=== PATIENT | female | born 1945 | race Caucasian/White ===

== ENCOUNTER 2020-12-01 06:26 | Inpatient (IN) ==
--- NOTE | 2020-11-26 10:23 | PAT Medication Instructions ---
Medication Instructions Date of Service November 26, 2020 Home Medications Medication Instructions Recorded nitroglycerin 0.4 mg sublingual 0.4 mg SL Q5M PRN #25 tab 08/12/19 tablet albuterol sulfate 90 mcg/actuation 2 puff INHALATION Q4H PRN #18 gm 08/23/20 aerosol inhaler hydrocortisone 2.5 % topical cream 1 applic SD BID PRN #30 g 08/24/20 with perineal applicator (Anusol-HC) lorazepam 0.5 mg tablet 0.5 mg PO Q6H PRN #120 tab 10/28/20 budesonide-formoterol HFA 160 2 puff INH BID #6 g 11/02/20 mcg-4.5 mcg/actuation aerosol inhaler (Symbicort) dicyclomine 10 mg capsule 10 mg PO BID #60 cap 11/02/20 buspirone 5 mg tablet 5 mg PO BID #60 tab 11/04/20 bacitracin 500 unit/gram eye 0.5 inch OPHTHALMIC (EYE) Q8H 7 11/16/20 ointment Days #3.5 g hydrocortisone acetate 1 % rectal cream 1 % SD BID nitroglycerin 0.4 mg sublingual tablet 0.4 mg SL Q5M PRN albuterol sulfate 90 mcg/actuation aerosol inhaler 2 puff INHALATION Q4H PRN hydrocortisone 2.5 % topical cream with perineal applicator (Anusol-HC) 1 applic SD BID PRN lorazepam 0.5 mg tablet 0.5 mg PO Q6H PRN budesonide-formoterol HFA 160 mcg-4.5 mcg/actuation aerosol inhaler (Symbicort) 2 puff INH BID dicyclomine 10 mg capsule 10 mg PO BID buspirone 5 mg tablet 5 mg PO BID bacitracin 500 unit/gram eye ointment 0.5 inch OPHTHALMIC (EYE) Q8H 7 Days amlodipine 5 mg tablet 5 mg PO QAM aspirin 325 mg tablet 325 mg PO QAM atorvastatin 10 mg tablet 10 mg PO QPM hydrocortisone acetate 25 mg rectal suppository (Anusol-HC) 25 mg SD BID PRN lidocaine HCl 2 % mucosal jelly 1 applic TOPICAL BID PRN metoprolol succinate 50 mg tablet,extended release 24 hr 50 mg PO QPM montelukast 10 mg tablet 10 mg PO QPM olmesartan 40 mg tablet (Benicar) 40 mg PO QAM omeprazole 20 mg capsule,delayed release 20 mg PO QAM phenazopyridine 100 mg tablet 100 mg PO TID PRN Continue as directed nitroglycerin 0.4 mg sublingual tablet 0.4 mg SL Q5M PRN (if needed) bacitracin 500 unit/gram eye ointment 0.5 inch OPHTHALMIC (EYE) Q8H 7 Days ASK your prescriber and surgeon aspirin 325 mg tablet 325 mg PO QAM STOP taking 24 hours before surgery hydrocortisone acetate 1 % rectal cream 1 % SD BID hydrocortisone 2.5 % topical cream with perineal applicator (Anusol-HC) 1 applic SD BID PRN lidocaine HCl 2 % mucosal jelly 1 applic TOPICAL BID PRN DO NOT take the morning of surgery dicyclomine 10 mg capsule 10 mg PO BID olmesartan 40 mg tablet (Benicar) 40 mg PO QAM phenazopyridine 100 mg tablet 100 mg PO TID PRN Take morning of surgery With a small sip of water, OTHERWISE NOTHING TO EAT OR DRINK AFTER MIDNIGHT: albuterol sulfate 90 mcg/actuation aerosol inhaler 2 puff INHALATION Q4H PRN (use if needed; please bring with you to hospital day of surgery if possible) lorazepam 0.5 mg tablet 0.5 mg PO Q6H PRN (if needed) budesonide-formoterol HFA 160 mcg-4.5 mcg/actuation aerosol inhaler (Symbicort) 2 puff INH BID buspirone 5 mg tablet 5 mg PO BID amlodipine 5 mg tablet 5 mg PO QAM hydrocortisone acetate 25 mg rectal suppository (Anusol-HC) 25 mg SD BID PRN (if needed) omeprazole 20 mg capsule,delayed release 20 mg PO QAM Take evening before surgery albuterol sulfate 90 mcg/actuation aerosol inhaler 2 puff INHALATION Q4H PRN (if needed) lorazepam 0.5 mg tablet 0.5 mg PO Q6H PRN (if needed) budesonide-formoterol HFA 160 mcg-4.5 mcg/actuation aerosol inhaler (Symbicort) 2 puff INH BID dicyclomine 10 mg capsule 10 mg PO BID buspirone 5 mg tablet 5 mg PO BID atorvastatin 10 mg tablet 10 mg PO QPM hydrocortisone acetate 25 mg rectal suppository (Anusol-HC) 25 mg SD BID PRN (if needed) metoprolol succinate 50 mg tablet,extended release 24 hr 50 mg PO QPM montelukast 10 mg tablet 10 mg PO QPM phenazopyridine 100 mg tablet 100 mg PO TID PRN (if needed) Other Notes If you have any questions please call us at [phone] or [phone] or [phone] or [phone]
--- NOTE | 2020-11-29 10:23 | Anesthesiology Consultation ---
Date of Service November 29, 2020 Assessment & Plan (1) Encounter for pre-operative examination: - hyponatremia at 128 11/29/2020-131 and 130 in recent months. Case discussed with Dr. Webber who advised repeat BMP am DOS. This was ordered on OR order sheet. FYI note also sent to PCP. - Cardio pre-op evaluation 09/30/2020: "...history of RCA stents x 2 in 2004...She has been experiencing some decline in her functional capacity...She has COPD which is managed by her PCP...I will have her go for a dobutamine stress test...I will have her repeat her labs. If her potassium remains elevated she will need to reduce her ARB dose...She can reduce her ASA to 81 mg...She is above average risk for cardiac complication including heart failure, arrhythmia, AR and cardiac arrest perioperatively with a NSQIP calculator score of 2.2% which I discussed with the patient. We also discussed that despite her elevated risk, surgery is necessary given her risk for rupture. Pt underwent subsequent dobutamine stress test negative for ischemia, repeat labs showed K within normal range. - COVID screening: Per assessment on 11/29/2020: Travel screen negative, no known COVID-19 positive contacts or current COVID-19 related symptoms. Patient vaccinated. Surgeon arranging preop COVID testing, being completed today at PAT appointment. Awaiting results. Chart Review Chart Review: Acceptable Risk for Surgery (repeat BMP am DOS.) and Patient seen in Pre Admission Testing Teaching & Discussion Pre-Anesthesia Teaching/Discussion Notes: Instructed NPO after midnight before surgery, except medications with 15 cc of water. Medication instructions provided according to the PAT guidelines. History Surgery Operation Date: 12/01/20 08:00 Proposed Procedures p Percutaneous Endovascular Aneurysm Repair - Angelo Panda MD Height/Weight Height: 4 ft 11 in Weight: 59.1 kg Allergies Allergy/AdvReac Type Severity Reaction Status Date / Time azithromycin Allergy Hives Verified 11/24/20 14:18 hydrochlorothiazide AdvReac Unknown Verified 11/24/20 14:18 Medications Home Medications Medication Instructions Recorded Confirmed Last Taken hydrocortisone acetate 1 % rectal 1 % NM BID #1 08/23/18 11/24/20 Unknown cream nitroglycerin 0.4 mg sublingual 0.4 mg SL Q5M PRN #25 tab 08/12/19 11/24/20 Unknown tablet hydrocortisone 2.5 % topical cream 1 applic [place] BID PRN #30 g 08/24/20 11/24/20 Unknown with perineal applicator (Anusol-) lorazepam 0.5 mg tablet 0.5 mg PO Q6H PRN #120 tab 10/28/20 11/24/20 Unknown budesonide-formoterol HFA 160 2 puff INH BID #6 g 11/02/20 11/24/20 Unknown mcg-4.5 mcg/actuation aerosol inhaler (Symbicort) dicyclomine 10 mg capsule 10 mg PO BID #60 cap 11/02/20 11/24/20 Unknown buspirone 5 mg tablet 5 mg PO BID #60 tab 11/04/20 11/24/20 Unknown bacitracin 500 unit/gram eye 0.5 inch OPHTHALMIC (EYE) Q8H 7 11/16/20 11/24/20 Unknown ointment Days #3.5 g amlodipine 5 mg tablet 5 mg PO QAM 11/24/20 11/24/20 Unknown aspirin 325 mg tablet 325 mg PO QAM 11/24/20 11/24/20 Unknown atorvastatin 10 mg tablet 10 mg PO QPM 11/24/20 11/24/20 Unknown hydrocortisone acetate 25 mg 25 mg [place] BID PRN 11/24/20 11/24/20 Unknown rectal suppository (Anusol-HC) lidocaine HCl 2 % mucosal jelly 1 applic TOPICAL BID PRN 11/24/20 11/24/20 Unknown metoprolol succinate 50 mg 50 mg PO QPM 11/24/20 11/24/20 Unknown tablet,extended release 24 hr montelukast 10 mg tablet 10 mg PO QPM 11/24/20 11/24/20 Unknown olmesartan 40 mg tablet (Benicar) 40 mg PO QAM 11/24/20 11/24/20 Unknown omeprazole 20 mg capsule,delayed 20 mg PO QAM 11/24/20 11/24/20 Unknown release phenazopyridine 100 mg tablet 100 mg PO TID PRN 11/24/20 11/24/20 Unknown albuterol sulfate 90 mcg/actuation 2 puff INHALATION Q4H PRN #18 gm 11/29/20 Unknown aerosol inhaler Past Medical History Medical History (Updated 11/29/20 @ 10:58 by Desiree Gayle PA-C) AAA (abdominal aortic aneurysm) 5.3 x 5.4cm AAA Anxiety CAD (coronary artery disease) S/p RCA stents x 2 in 2004 Last seen by cardio September 2020 (for preop for PEVAR)- DSE done 11/2020 (negative) COPD (chronic obstructive pulmonary disease) Chronic dyspnea on exertion, stable per pt, recent negative dobutamine stress test ordered by cardio, follows with PCP. Dyslipidemia GERD (gastroesophageal reflux disease) Controlled, denies issues laying flat HTN (hypertension) Controlled, stable. Menopausal osteoporosis Patient denies h/o stroke, seizures, DM, blood clots or blood transfusions. Exercise / Class Metabolic Activity III < 4 Walking/Shop/Light housework (SOB with 1 FOS, denies CP) Past Family History Family History Father Myocardial infarction Pulmonary embolism Sister Lung cancer Cancer Brain tumor Mother Myocardial infarction Other No family history of adverse response to anesthesia Denies family history of Ovarian cancer Prostate cancer Breast cancer Colorectal cancer Past Surgical History Surgical History H/O colonoscopy H/O tubal ligation History of appendectomy History of cardiac catheterization approx 10 years ago - + stress test - [facility] - 1 stent History of esophagogastroduodenoscopy (EGD) History of heart artery stent x 1 History of tonsillectomy and adenoidectomy Past Anesthesia History No Hx of Anesthesia Complications and No Family Hx of Anesthesia Complications History of PONV No Hx of PONV and No Hx of Motion Sickness Social History Smoking Status: Former smoker tobacco type: cigarettes Do You Dip or Chew Tobacco: No Smoking End Date: 12 years ago Hx Alcohol Use: No Hx Substance Use: No substance use type: does not use Review of Systems Patient denies chest pain, shortness of breath at rest, snoring, witnessed apneas, fever, chills, wheezing, or palpitations. Physical Exam Vital Signs Vitals BP 149/75 P 80 TEMP 98.4 SP02 96% on RA RESP 16 Physical Full cervical extension range of motion without pain TMD 3.5 finger breaths Mallampati Score 3 Dentition: edentulous, full upper and lower dentures Lungs: normal respiratory effort. Clear throughout to auscultation, no adventitious breath sounds Cardiac: regular rate and rhythm, no murmurs noted Carotid arteries: negative bruit bilat Extremities: no distal extremity edema Lab Results Anesthesia Preop Results Results Anesthesia Widget: WBC 8.04 K/uL (4.8-10.8) 11/29/20 Hgb 14.5 g/dL (12.0-16.0) 11/29/20 Hct 42.2 % (37-47) 11/29/20 Plt 283 K/uL (130-400) 11/29/20 Na 128 mmol/L (136-145) L 11/29/20 K 4.8 mmol/L (3.5-5.1) 11/29/20 Cl 96 mmol/L (98-107) L 11/29/20 CO2 31 mmol/L (21-32) 11/29/20 BUN 15 mg/dl (7-18) 11/29/20 Creat 0.94 mg/dl (0.6-1.2) 11/29/20 Glucose Level 107 mg/dl (70-99) H 11/29/20 PT 9.8 Seconds (9.0-12.0) 11/29/20 PTT 25.5 Seconds (21.0-31.0) 11/29/20 INR 1.0 (0.9-1.1) 11/29/20 Blood Type O Negative 11/29/20 Antibody Screen NEGATIVE 11/29/20 Lab Comments: COVID 11/29/2020: Negative. Testing Electrocardiogram Date: 11/29/20 Normal sinus rhythm. Normal ECG. No previous ECGs available. Confirmed by Feng Anderson. Chest X-Ray Date: 11/29/20 No acute chest disease. Stress Test Date: 11/23/20 Dobutamine MPHR 92%. Negative stress echocardiogram for ischemia at 92% MPHR. Negative stress ECG for ischemia at 92% MPHR. EF 75%. No regional wall motion abnormalities.
--- NOTE | 2020-11-30 14:08 | History & Physical Report ---
Date of Service November 30, 2020 Assessment & Plan (1) AAA (abdominal aortic aneurysm) without rupture: Plan: Patient admitted for a PEVAR of her AAA. I have discussed the risks options and benefits of the procedure with the patient. The patient understands the risks options and benefits and agrees to the procedure. History of Present Illness Chief Complaint: AAA Primary Care Provider: Mitchell Youngblood DO Mrs. Pal is an elderly female who presents to vascular surgery clinic today for a follow-up visit after undergoing a CTA of the abdomen and pelvis. Patient is seen by our vascular service annually with an aortoiliac ultrasound to evaluate her infrarenal AAA. She was to be seen here again this fall, however, her family physician ordered a renal ultrasound which demonstrated a 5.4 cm infrarenal abdominal aortic aneurysm. Her last ultrasound performed in this office in fall 2019 had demonstrated her aneurysm to be about 4.8 cm. Patient was advised to undergo a CTA and return to our office for further recommendations due to the size demonstrated on the renal ultrasound. Patient does admit dyspnea on exertion when she goes upstairs or is active. She attributes this to her COPD. She does have a history of coronary stenting many years ago and does not continue to follow with her biblical studies professor for many years. Her last stress test was performed an unknown number of years ago. Patient denies any complaints at this time clinic headache, fever, chills, chest pain, shortness of breath, abdominal pain, nausea, vomiting, claudication, nonhealing wounds or ulcers, other complaints. Allergies Allergy/AdvReac Type Severity Reaction Status Date / Time azithromycin Allergy Hives Verified 11/24/20 14:18 hydrochlorothiazide AdvReac Unknown Verified 11/24/20 14:18 Home Medications Medication Instructions Recorded Confirmed Type hydrocortisone acetate 1 % rectal 1 % [place] BID #1 08/23/18 11/24/20 History cream nitroglycerin 0.4 mg sublingual 0.4 mg SL Q5M PRN #25 tab 08/12/19 11/24/20 Rx tablet hydrocortisone 2.5 % topical cream 1 applic [place] BID PRN #30 g 08/24/20 11/24/20 Rx with perineal applicator (Anusol-HC) lorazepam 0.5 mg tablet 0.5 mg PO Q6H PRN #120 tab 10/28/20 11/24/20 Rx budesonide-formoterol HFA 160 2 puff INH BID #6 g 11/02/20 11/24/20 Rx mcg-4.5 mcg/actuation aerosol inhaler (Symbicort) dicyclomine 10 mg capsule 10 mg PO BID #60 cap 11/02/20 11/24/20 Rx buspirone 5 mg tablet 5 mg PO BID #60 tab 11/04/20 11/24/20 Rx bacitracin 500 unit/gram eye 0.5 inch OPHTHALMIC (EYE) Q8H 7 11/16/20 11/24/20 R x ointment Days #3.5 g amlodipine 5 mg tablet 5 mg PO QAM 11/24/20 11/24/20 History aspirin 325 mg tablet 325 mg PO QAM 11/24/20 11/24/20 History atorvastatin 10 mg tablet 10 mg PO QPM 11/24/20 11/24/20 History hydrocortisone acetate 25 mg 25 mg [place] BID PRN 11/24/20 11/24/20 History rectal suppository (Anusol-HC) lidocaine HCl 2 % mucosal jelly 1 applic TOPICAL BID PRN 11/24/20 11/24/20 History metoprolol succinate 50 mg 50 mg PO QPM 11/24/20 11/24/20 History tablet,extended release 24 hr montelukast 10 mg tablet 10 mg PO QPM 11/24/20 11/24/20 History olmesartan 40 mg tablet (Benicar) 40 mg PO QAM 11/24/20 11/24/20 History omeprazole 20 mg capsule,delayed 20 mg PO QAM 11/24/20 11/24/20 History release phenazopyridine 100 mg tablet 100 mg PO TID PRN 11/24/20 11/24/20 History albuterol sulfate 90 mcg/actuation 2 puff INHALATION Q4H PRN #18 gm 11/29/20 Rx aerosol inhaler Past Med/Surg History Medical History AAA (abdominal aortic aneurysm) 5.3 x 5.4cm AAA Anxiety CAD (coronary artery disease) S/p RCA stents x 2 in 2004 Last seen by cardio September 2020 (for preop for PEVAR)- DSE done 11/2020 (negative) COPD (chronic obstructive pulmonary disease) Chronic dyspnea on exertion, stable per pt, recent negative dobutamine stress test ordered by cardio, follows with PCP. Dyslipidemia GERD (gastroesophageal reflux disease) Controlled, denies issues laying flat HTN (hypertension) Controlled, stable. Menopausal osteoporosis Surgical History H/O colonoscopy H/O tubal ligation History of appendectomy History of cardiac catheterization approx 10 years ago - + stress test - [facility] - 1 stent History of esophagogastroduodenoscopy (EGD) History of heart artery stent x 1 History of tonsillectomy and adenoidectomy Family History Father Myocardial infarction Pulmonary embolism Sister Lung cancer Cancer Brain tumor Mother Myocardial infarction Other No family history of adverse response to anesthesia Denies family history of Ovarian cancer Prostate cancer Breast cancer Colorectal cancer Social History Smoking Status: Former smoker Age Started Using Tobacco: 15; Age Quit Using Tobacco: 49; packs per day: 1.5; Years Smoked: 34; Number of Years Since Quit: 15; Second Hand Exposure: No; Hx Alcohol Use: No Hx Substance Use: No Preferred Language: Persian Communication Ability: Effective Visual Impairment: Limited Hearing Ability: Hard of Hearing Mill Tender Washing Required: No Beliefs That Will Affect Care: None marital status: Current Living Situation: Spouse current occupational status: retired current occupation: retired- nursing service director Feels Safe at Home: Yes Childhood Exposure to Second-Hand Smoke: Yes Physical Activity Frequency: 3-4 Times per Week Seatbelt Use: always Sunscreen Use: Yes Assistive Devices: Denture - Upper, Denture - Lower and Glasses Review of Systems All systems reviewed & are unremarkable except as noted in HPI & below Physical Exam Physical Exam: Constitutional: In general patient is a healthy-appearing well- nourished well-developed elderly female no distress. She is alert and oriented without any focal deficits. Her heart is regular, her lungs are clear but demonstrate significantly decreased breath sounds. Her abdomen is soft and nontender with normoactive bowel sounds in all 4 quadrants. Her pulsatile mass is appreciable on deep palpation. Her radial pulses are +3. Her femoral pulses are +2. Her lower extremity distal pulses are +2. She has brisk capillary refill and no sign of distal ischemia
[~2020-12-01 06:26] MED LIST: SODIUM CHLORIDE 0.9% 1000ML IV SCH; ceFAZolin 1000MG 1,000 MG/7.5 ML SYR IV SCH
[2020-12-01] MEDS ORDERED: BUPIVACAINE 0.5 % 5 MG/1 ML MPF 30ML VIAL ONE (07:13)
[2020-12-01] MEDS ORDERED: NEOSTIGMINE METHYLSULFATE 1 MG/ML 10ML VIAL ONE (07:14)
[2020-12-01] MEDS ORDERED: PHENYLEPHRINE HCL 10 MG/ML VIAL ONE (07:14)
[2020-12-01] MEDS ORDERED: fentaNYL citrate 100 MCG/2 ML VIAL ONE (07:14)
[2020-12-01] MEDS ORDERED: DEXAMETHASONE SOD INJ 4 MG/ML VIAL ONE (07:14)
[2020-12-01] MEDS ORDERED: HEPARIN SOD (PORCINE) 1000 UNIT/ML ONE (07:14)
[2020-12-01] MEDS ORDERED: MIDAZOLAM HCL 1 MG/ML 2ML VIAL ONE (07:14)
[2020-12-01] MEDS ORDERED: PROPOFOL IV EMULSION 10 MG/ML 20 ML VIAL IV ONE (07:14)
[2020-12-01] MEDS ORDERED: PROTAMINE SULFATE 10 MG/ML 5 ML VIAL ONE (07:14)
[2020-12-01] MEDS ORDERED: ROCURONIUM BROMIDE 10 MG/ML 5 ML VIAL IV ONE ×2 (07:14→07:33)
[2020-12-01] MEDS ORDERED: LABETALOL HCL IV 5 MG/ML 20ML IV ONE (07:14)
[2020-12-01] MEDS ORDERED: LARYING-O-JET KIT (LTA) ONE (07:14)
[2020-12-01] MEDS ORDERED: ePHEDrine sulfate 50 MG/ML SYR ONE (07:14)
[2020-12-01] MEDS ORDERED: GLYCOPYRROLATE 0.2 MG/ML VIAL ONE (07:14)
[2020-12-01] MEDS ORDERED: LIDOCAINE 2% 2 ML VIAL/AMP(20MG/ML) INFIL ONE (07:14)
[2020-12-01] MEDS ORDERED: ONDANSETRON INJ 2 MG/ML 2 ML VIAL ONE (07:14)
[2020-12-01] MEDS ORDERED: PHENYLEPHRINE 100MCG/ML 5ML SYR IV PRN (07:15)
[2020-12-01] MEDS ORDERED: ATROPINE SULFATE 0.1 MG/ML 10ML SYR IV PRN (07:15)
[2020-12-01] MEDS ORDERED: ePHEDrine sulfate 50 MG/ML AMP IV PRN (07:15)
[2020-12-01] MEDS ORDERED: ONDANSETRON INJ 2 MG/ML 2 ML VIAL IV PRN ×2 (07:15→11:43)
[2020-12-01] MEDS ORDERED: HYDROmorphone INJ 1 MG/ML SYRINGE IV PRN (07:15)
[2020-12-01] MEDS ORDERED: fentaNYL citrate 100 MCG/2 ML VIAL IV PRN (07:15)
[2020-12-01] MEDS ORDERED: MEPERIDINE HCL 25 MG/ML CARP/VIAL IV PRN (07:15)
[2020-12-01] MEDS ORDERED: LABETALOL HCL IV 5 MG/ML 20ML IV PRN (07:15)
[2020-12-01] MEDS ORDERED: EPINEPHrine INJ 1 MG/ML AMP ONE (07:16)
--- NOTE | 2020-12-01 07:38 | History & Physical Bridge Note ---
Date of Service December 01, 2020 History & Physical Bridge Note I have examined the patient, reviewed the History & Physical and in the interval since the performance of the History & Physical I have noted the following changes of clinical significance: no changes noted
[2020-12-01 07:56] LABS: BUN Creatinine Ratio 16.7 (10-20); Calcium 9.1 mg/dl (8.5-10.1); Creatinine Clr Calc Pharmacy 42.3 ml/min; Est GFR (Non-African American) 63.8 ml/min; Potassium 3.8 mmol/L (3.5-5.1)
[2020-12-01] MEDS ORDERED: VISIPAQUE IV PRN (09:37)
[2020-12-01] MEDS ORDERED: ARISTA ABSORBABLE HEMOSTAT 3GM TOP ONE (09:37)
[2020-12-01] MEDS ORDERED: SURGICEL ABSORB HEMOSTAT 2IN X 14IN TOP ONE (09:44)
[2020-12-01] MEDS ORDERED: SUGAMMADEX SODIUM 200 MG/2 ML VIAL IV ONE (09:53)
--- NOTE | 2020-12-01 09:58 | Post Operative Brief Note ---
Immediate Post Op Note v1 Date of Surgery December 01, 2020 Pre & Post Diagnosis Operation Date: 12/01/20 08:00 Pre-Op Diagnosis: Abdominal Aortic Aneurysm Post-Op Diagnosis: Abdominal Aortic Aneurysm I identified the patient and participated in the time-out.: Yes Procedure Operation Date: 12/01/20 08:00 Actual Procedures p Percutaneous Endovascular Aneurysm Repair, Open Exposure of Left Groin, Ultrasound Localization of Bilateral Femoral Arteries, Mechanical Closure of Right Femoral Artery(Bilateral) - Angelo Panda MD Surgeon Angelo Panda MD Federal Judge Yina,PAC Estimated Blood Loss 50 Findings Consistent with Post-Op Diagnosis Drains Koenig Catheter Anesthesia Type General Complications none Disposition Accompanied Patient To Recovery: No Disposition: Recovery Room
[2020-12-01 10:43] LABS: Hematocrit (blood only) 33.6 % (37-47); Hemoglobin 11.2 g/dL (12.0-16.0)
--- NOTE | 2020-12-01 11:16 | Anesthesiology Progress Note ---
Date of Service December 01, 2020 Anesthesia Post Procedure Vital Signs Vital Signs: Temp Pulse Pulse Resp BP Pulse Ox 12/01/20 10:45 36.3 C L 103 H 19 80/47 L 93 12/01/20 10:35 97 H 24 100/52 L 92 12/01/20 10:25 97 H 25 H 98/51 L 93 12/01/20 10:15 91 H 23 95/51 L 95 12/01/20 10:05 36.1 C L 105 H 16 107/57 L 100 12/01/20 07:05 36.5 C 94 H 18 139/85 94 Pain Intensity Abdomen: Pain Intensity: 0 Transfer of Care Handoff Completed per policy Notes Mental Status: alert / awake / arousable Patient Amnestic to Procedure: Yes Nausea / Vomiting: adequately controlled Pain: adequately controlled Airway Patency, RR, SpO2: stable & adequate BP & HR: stable & adequate Hydration State: stable & adequate Anesthetic Complications: no major complications apparent and Pt Satisfied with anesthetic care Notes: The patient is awake and comfortable. She has an arterial line and her last SBP was in the 100s (not 80). Sign out was given to Dr. Leo in the ICU. The patient will be monitored overnight in the ICU.
[2020-12-01] MEDS ORDERED: LORazepam 0.5 MG TAB PO PRN (11:43)
[2020-12-01] MEDS ORDERED: HYDROCORTISONE HC 2.5% CRM 30GM TUBE EXT PRN (11:43)
[2020-12-01] MEDS ORDERED: LIDOCAINE 2% JELLY 5 ML TUBE EXT PRN (11:43)
[2020-12-01] MEDS ORDERED: D5W AND 1/2NSS 1,000 ML IV SCH (11:43)
[2020-12-01] MEDS ORDERED: HYDROCORTISONE ACETATE 25 MG SUPP PR PRN (11:43)
[2020-12-01] MEDS ORDERED: NITROGLYCERIN SL 0.4 MG/TAB TAB SL PRN (11:43)
[2020-12-01] MEDS ORDERED: PHENAZOPYRIDINE HCL 100 MG TAB PO PRN (11:43)
[2020-12-01] MEDS ORDERED: ALBUTEROL HFA 8 GM INHALER INH PRN (11:43)
[2020-12-01] MEDS: ceFAZolin 1000MG 1,000 MG/7.5 ML SYR IV SCH ×3 (11:57→19:46)
[2020-12-01] MEDS: oxyCODONE/ACETAMINOPHEN 5mg/325mg TAB PO PRN (12:17)
[2020-12-01] MEDS: MoRPHine SULFATE 4 MG/ML 1 ML CARP\\VIAL IV PRN ×3 (15:01→19:47)
--- NOTE | 2020-12-01 17:54 | Critical Care Consultation ---
Date of Consultation December 01, 2020 History of Present Illness Reason for Consultation: Post AAA repair ICU monitoring Attending Physician: Angelo Panda MD History of Present Illness 75-year-old female with a past medical history of COPD who was found to have a 5.4 cm infrarenal abdominal aortic aneurysm. Allergies Allergy/AdvReac Type Severity Reaction Status Date / Time azithromycin Allergy Hives Verified 12/01/20 06:55 hydrochlorothiazide AdvReac Unknown Verified 12/01/20 06:55 Home Medications Medication Instructions Recorded Confirmed Type hydrocortisone acetate 1 % rectal 1 % NM BID #1 08/23/18 12/01/20 History cream nitroglycerin 0.4 mg sublingual 0.4 mg SL Q5M PRN #25 tab 08/12/19 12/01/20 Rx tablet hydrocortisone 2.5 % topical cream 1 applic NM BID PRN #30 g 08/24/20 12/01/20 Rx with perineal applicator (Anusol-HC) lorazepam 0.5 mg tablet 0.5 mg PO Q6H PRN #120 tab 10/28/20 12/01/20 Rx budesonide-formoterol HFA 160 2 puff INH BID #6 g 11/02/20 12/01/20 Rx mcg-4.5 mcg/actuation aerosol inhaler (Symbicort) buspirone 5 mg tablet 5 mg PO BID #60 tab 11/04/20 12/01/20 Rx amlodipine 5 mg tablet (Norvasc) 5 mg PO QAM 11/24/20 12/01/20 History aspirin 325 mg tablet 325 mg PO QAM 11/24/20 12/01/20 History atorvastatin 10 mg tablet 10 mg PO QPM 11/24/20 12/01/20 History hydrocortisone acetate 25 mg 25 mg NM BID PRN 11/24/20 12/01/20 History rectal suppository (Anusol-HC) lidocaine HCl 2 % mucosal jelly 1 applic TOPICAL BID PRN 11/24/20 12/01/20 History metoprolol succinate 50 mg 50 mg PO QPM 11/24/20 12/01/20 History tablet,extended release 24 hr montelukast 10 mg tablet 10 mg PO QPM 11/24/20 12/01/20 History (Singulair) olmesartan 40 mg tablet (Benicar) 40 mg PO QAM 11/24/20 12/01/20 History omeprazole 20 mg capsule,delayed 20 mg PO QAM 11/24/20 12/01/20 History release phenazopyridine 100 mg tablet 100 mg PO TID PRN 11/24/20 12/01/20 History (Pyridium) albuterol sulfate 90 mcg/actuation 2 puff INHALATION Q4H PRN #18 gm 11/29/20 12/01/20 Rx aerosol inhaler Patient History Medical History (Updated 12/01/20 @ 07:17 by Michael Mckeon MD) AAA (abdominal aortic aneurysm) 5.3 x 5.4cm AAA Anxiety CAD (coronary artery disease) S/p RCA stents x 2 in 2004 Last seen by cardio September 2020 (for preop for PEVAR)- DSE done 11/2020 (negative) COPD (chronic obstructive pulmonary disease) Chronic dyspnea on exertion, stable per pt, recent negative dobutamine stress test ordered by cardio, follows with PCP. Dyslipidemia GERD (gastroesophageal reflux disease) Controlled, denies issues laying flat HTN (hypertension) Controlled, stable. Hyponatremia Menopausal osteoporosis Surgical History H/O colonoscopy H/O tubal ligation History of appendectomy History of cardiac catheterization approx 10 years ago - + stress test - [facility] - 1 stent History of esophagogastroduodenoscopy (EGD) History of heart artery stent x 1 History of tonsillectomy and adenoidectomy Family History Father Myocardial infarction Pulmonary embolism Sister Lung cancer Cancer Brain tumor Mother Myocardial infarction Other No family history of adverse response to anesthesia Denies family history of Ovarian cancer Prostate cancer Breast cancer Colorectal cancer Social History Smoking Status: Former smoker Age Started Using Tobacco: 15; Age Quit Using Tobacco: 49; packs per day: 1.5; Years Smoked: 34; Smoking End Date: 12 years ago; Number of Years Since Quit: 15; Second Hand Exposure: No; Do You Dip or Chew Tobacco: No; Tobacco Cessation Education Requested by Patient: No Hx Alcohol Use: No Hx Substance Use: No Preferred Language: Bahraini Communication Ability: Effective Visual Impairment: Limited Hearing Ability: Hard of Hearing Liner Replacer Required: No Beliefs That Will Affect Care: None marital status: Current Living Situation: Spouse current occupational status: retired current occupation: retired- associate of science in nursing Feels Safe at Home: Yes Safety Concerns: Feels Safe At This Time Childhood Exposure to Second-Hand Smoke: Yes Physical Activity Frequency: 3-4 Times per Week Seatbelt Use: always Sunscreen Use: Yes Assistive Devices: Denture - Upper, Denture - Lower and Glasses Results & Data Results & Data ([facility]) Vital Signs (Past 12 Hours) Vital Signs Temp Pulse Pulse Pulse Resp BP BP 12/01/20 16:34 97.7 F 12/01/20 16:00 112 H 19 128/42 L 12/01/20 15:00 94 H 17 122/47 L 12/01/20 14:00 94 H 31 H 12/01/20 13:18 86 14 12/01/20 13:00 97.7 F 96 H 18 102/42 L 12/01/20 12:15 97.7 F 97 H 18 102/68 12/01/20 11:25 93 H 16 105/78 12/01/20 10:45 97.3 F L 103 H 19 80/47 L 12/01/20 10:35 97 H 24 100/52 L 12/01/20 10:25 97 H 25 H 98/51 L 12/01/20 10:15 91 H 23 95/51 L 12/01/20 10:05 97.0 F L 105 H 16 107/57 L 12/01/20 07:05 97.7 F 94 H 18 139/85 Pulse Ox 12/01/20 16:34 12/01/20 16:00 97 12/01/20 15:00 95 12/01/20 14:00 94 12/01/20 13:18 93 12/01/20 13:00 95 12/01/20 12:15 95 12/01/20 11:25 95 12/01/20 10:45 93 12/01/20 10:35 92 12/01/20 10:25 93 12/01/20 10:15 95 12/01/20 10:05 100 12/01/20 07:05 94 Coding
[2020-12-01] MEDS: busPIRone 5 MG TAB PO SCH (19:46)
--- NOTE | 2020-12-01 20:54 | Critical Care Consultation ---
Date of Consultation December 01, 2020 Assessment & Plan (1) AAA (abdominal aortic aneurysm) without rupture: Patient with 5.7 cm AAA on recent CTA. Now status post PVAR POD 1. Currently hemodynamically stable and hemoglobin stable at 11 postop. No signs of bleeding. Restart antihypertensives and avoid hypertension Continuous hemodynamic monitoring, monitor in ICU overnight (2) Hyponatremia: Chronic, stable at 132 on BMP this a.m. (3) CAD (coronary artery disease): Continue ASA (4) HTN (hypertension): Continue Norvasc, metoprolol. Continuous monitoring on arterial line. Avoid hypertension following PVAR (5) Dyslipidemia: Continue statin (6) Anxiety: Ativan as needed, continue BuSpar (7) GERD (gastroesophageal reflux disease): Continue PPI (8) COPD (chronic obstructive pulmonary disease): No issue at this time, lungs clear to auscultation. Maintaining oxygen saturation on room air Continue Breo Ellipta Continuous monitoring pulse ox History of Present Illness Attending Physician: Angelo Panda MD History of Present Illness Patient is a 75-year-old female with history of hypertension, CAD, GERD, COPD, anxiety, and AAA who presents to the ICU POD 1 following a scheduled PEVAR. Patient had a known 4.8 cm aneurysm which was noted to now be 5.4 cm on recent renal ultrasound. Today she underwent a percutaneous endovascular aneurysm repair with open exposure of the left groin. Patient now presents to the ICU for monitoring following procedure. She is currently hemodynamically stable without distress. She is maintaining oxygen saturations on nasal cannula and is alert and oriented. Patient does report feeling anxious but denies pain at the time of exam. She has general anxiety disorder and is receiving lorazepam. She currently denies headache, dizziness, syncope, fevers or recent illness, shortness of breath, chest pain or palpitations, abdominal pain, nausea or vomiting, swelling in hands or feet, tingling or loss of sensation or weakness. Patient to remain in ICU for further monitoring at this time. Allergies Allergy/AdvReac Type Severity Reaction Status Date / Time azithromycin Allergy Hives Verified 12/01/20 06:55 hydrochlorothiazide AdvReac Unknown Verified 12/01/20 06:55 Home Medications Medication Instructions Recorded Confirmed Type hydrocortisone acetate 1 % rectal 1 % [place] BID #1 08/23/18 12/01/20 History cream nitroglycerin 0.4 mg sublingual 0.4 mg SL Q5M PRN #25 tab 08/12/19 12/01/20 Rx tablet hydrocortisone 2.5 % topical cream 1 applic [place] BID PRN #30 g 08/24/20 12/01/20 Rx with perineal applicator (Anusol-HC) lorazepam 0.5 mg tablet 0.5 mg PO Q6H PRN #120 tab 10/28/20 12/01/20 Rx budesonide-formoterol HFA 160 2 puff INH BID #6 g 11/02/20 12/01/20 Rx mcg-4.5 mcg/actuation aerosol inhaler (Symbicort) buspirone 5 mg tablet 5 mg PO BID #60 tab 11/04/20 12/01/20 Rx amlodipine 5 mg tablet (Norvasc) 5 mg PO QAM 11/24/20 12/01/20 History aspirin 325 mg tablet 325 mg PO QAM 11/24/20 12/01/20 History atorvastatin 10 mg tablet 10 mg PO QPM 11/24/20 12/01/20 History hydrocortisone acetate 25 mg 25 mg [place] BID PRN 11/24/20 12/01/20 History rectal suppository (Anusol-HC) lidocaine HCl 2 % mucosal jelly 1 applic TOPICAL BID PRN 11/24/20 12/01/20 History metoprolol succinate 50 mg 50 mg PO QPM 11/24/20 12/01/20 History tablet,extended release 24 hr montelukast 10 mg tablet 10 mg PO QPM 11/24/20 12/01/20 History (Singulair) olmesartan 40 mg tablet (Benicar) 40 mg PO QAM 11/24/20 12/01/20 History omeprazole 20 mg capsule,delayed 20 mg PO QAM 11/24/20 12/01/20 History release phenazopyridine 100 mg tablet 100 mg PO TID PRN 11/24/20 12/01/20 History (Pyridium) albuterol sulfate 90 mcg/actuation 2 puff INHALATION Q4H PRN #18 gm 11/29/20 12/01/20 Rx aerosol inhaler Patient History Medical History (Updated 12/01/20 @ 20:45 by ROSALIA Carbajal) AAA (abdominal aortic aneurysm) 5.3 x 5.4cm AAA Anxiety CAD (coronary artery disease) S/p RCA stents x 2 in 2004 Last seen by cardio September 2020 (for preop for PEVAR)- DSE done 11/2020 (negative) COPD (chronic obstructive pulmonary disease) Chronic dyspnea on exertion, stable per pt, recent negative dobutamine stress test ordered by cardio, follows with PCP. COPD (chronic obstructive pulmonary disease) Dyslipidemia GERD (gastroesophageal reflux disease) Controlled, denies issues laying flat HTN (hypertension) Controlled, stable. Hyponatremia Menopausal osteoporosis Surgical History H/O colonoscopy H/O tubal ligation History of appendectomy History of cardiac catheterization approx 10 years ago - + stress test - [facility] - 1 stent History of esophagogastroduodenoscopy (EGD) History of heart artery stent x 1 History of tonsillectomy and adenoidectomy Family History Father Myocardial infarction Pulmonary embolism Sister Lung cancer Cancer Brain tumor Mother Myocardial infarction Other No family history of adverse response to anesthesia Denies family history of Ovarian cancer Prostate cancer Breast cancer Colorectal cancer Social History Smoking Status: Former smoker Age Started Using Tobacco: 15; Age Quit Using Tobacco: 49; packs per day: 1.5; Years Smoked: 34; Smoking End Date: 12 years ago; Number of Years Since Quit: 15; Second Hand Exposure: No; Do You Dip or Chew Tobacco: No; Tobacco Cessation Education Requested by Patient: No Hx Alcohol Use: No Hx Substance Use: No Preferred Language: Citizen Of [place] Communication Ability: Effective Visual Impairment: Limited Hearing Ability: Hard of Hearing Singing Waiter Or Waitress Required: No Beliefs That Will Affect Care: None marital status: Current Living Situation: Spouse current occupational status: retired current occupation: retired- psychiatric nursing aide Feels Safe at Home: Yes Safety Concerns: Feels Safe At This Time Childhood Exposure to Second-Hand Smoke: Yes Physical Activity Frequency: 3-4 Times per Week Seatbelt Use: always Sunscreen Use: Yes Assistive Devices: Denture - Upper, Denture - Lower and Glasses Review of Systems Review of Systems: All systems reviewed & are unremarkable except as noted in HPI & below Physical Exam Constitutional: cooperative and comfortable; no altered mental status Eyes: PERRL, conjunctivae normal, anicteric sclerae ENMT: external ear and nose normal, oropharynx normal Neck: trachea midline, no thyromegaly Respiratory: normal respiratory effort, lungs clear to auscultation Cardiovascular: RRR, no murmur, no edema Heart Sounds: normal S1 and normal S2 Vessels: no JVD Extremities: normal capillary refill; no edema Gastrointestinal (Abdomen): normal bowel sounds, soft, nontender, no h epatosplenomegaly Musculoskeletal: no cyanosis or clubbing, extremities motor strength 5/5 Skin: Bilateral femoral dressings without significant edema or evidence of bleeding. Neurologic: PERRL, EOMI, accommodation nl, no face palsy, no dysarthria Psychiatric: A+Ox3, euthymic affect Results & Data Results & Data ([facility]) Vital Signs (Past 12 Hours) Vital Signs Temp Pulse Pulse Resp BP BP Pulse Ox 12/01/20 18:00 36.5 C 119 H 17 109/61 12/01/20 17:00 118 H 21 97 12/01/20 16:34 36.5 C 12/01/20 16:00 112 H 19 128/42 L 97 12/01/20 15:00 94 H 17 122/47 L 95 12/01/20 14:00 94 H 31 H 94 12/01/20 13:18 86 14 93 12/01/20 13:00 36.5 C 96 H 18 102/42 L 95 12/01/20 12:15 36.5 C 97 H 18 102/68 95 12/01/20 11:25 93 H 16 105/78 95 12/01/20 10:45 36.3 C L 103 H 19 80/47 L 93 12/01/20 10:35 97 H 24 100/52 L 92 12/01/20 10:25 97 H 25 H 98/51 L 93 12/01/20 10:15 91 H 23 95/51 L 95 12/01/20 10:05 36.1 C L 105 H 16 107/57 L 100 Coding Level of Care Code 48129 Inpt Consult Level 3 Diagnoses Hyponatremia E87.1 AAA (abdominal aortic aneurysm) without rupture I71.4 CAD (coronary artery disease) I25.10 HTN (hypertension) I10 Dyslipidemia E78.5 Anxiety F41.9 GERD (gastroesophageal reflux disease) K21.9 COPD (chronic obstructive pulmonary disease) J44.9
[2020-12-01] MEDS ORDERED: HYDROCORTISONE ACETATE PR SCH (21:00)
[2020-12-01] MEDS ORDERED: METOPROLOL SUCC 50MG EXT REL TAB PO SCH (21:00)
[2020-12-01] MEDS ORDERED: ATORVASTATIN 10 MG TAB PO SCH (21:00)
[2020-12-01] MEDS ORDERED: MONTELUKAST SODIUM 10 MG TABLET PO SCH (21:00)
[2020-12-02] MEDS: MoRPHine SULFATE 4 MG/ML 1 ML CARP\\VIAL IV PRN (00:39)
[2020-12-02 05:58] LABS: Hematocrit (blood only) 35.1 % (37-47); Hemoglobin 11.7 g/dL (12.0-16.0)
[2020-12-02 06:30] LABS: BUN Creatinine Ratio 16.2 (10-20); Calcium 8.4 mg/dl (8.5-10.1); Creatinine Clr Calc Pharmacy 41.5 ml/min; Potassium 4.6 mmol/L (3.5-5.1)
[2020-12-02] MEDS: busPIRone 5 MG TAB PO SCH (07:49)
[2020-12-02] MEDS ORDERED: OLMESARTAN MEDOXOMIL 40 MG TAB PO SCH (09:00)
[2020-12-02] MEDS ORDERED: amLODIPine BESYLATE 5 MG TAB PO SCH (09:00)
[2020-12-02] MEDS ORDERED: FLUTICASONE/VILANTEROL 200/25MCG 14 PUFFS/INHALER INH SCH (09:00)
[2020-12-02] MEDS ORDERED: ASPIRIN 325 MG ECTAB PO SCH (09:00)
[2020-12-02] MEDS ORDERED: PANTOprazole 40 MG TAB PO SCH (09:00)
[2020-12-02] MEDS: oxyCODONE/ACETAMINOPHEN 5mg/325mg TAB PO PRN (09:45)
--- NOTE | 2020-12-02 13:26 | Critical Care Progress Note ---
Date of Service December 02, 2020 Assessment & Plan (1) AAA (abdominal aortic aneurysm) without rupture: Plan: Patient with 5.7 cm AAA on recent CTA. Now status post PVAR POD 1. Currently hemodynamically stable and hemoglobin stable at 11 postop. No signs of bleeding. Restart antihypertensives and avoid hypertension Likely discharge by vascular surgery later today. (2) Hyponatremia: Plan: This is chronic and stable. (3) CAD (coronary artery disease): Plan: Continue ASA (4) HTN (hypertension): Plan: Continue Norvasc, metoprolol. (5) Dyslipidemia: Plan: Continue statin (6) Anxiety: Plan: Ativan as needed, continue BuSpar (7) GERD (gastroesophageal reflux disease): Plan: Continue PPI (8) COPD (chronic obstructive pulmonary disease): Plan: No issue at this time, lungs clear to auscultation. Maintaining oxygen saturation on room air Continue Breo Ellipta Continuous monitoring pulse ox Admission and Anticipated Discharge Date Admission Date: December 01, 2020 Subjective Patient complaining of abdominal pain due to dressings. Tolerating her diet this morning. No events overnight. Art line in place. Review of Systems Review of Systems: All systems reviewed & are unremarkable except as noted in HPI & below Physical Exam Constitutional: cooperative and comfortable; no altered mental status Eyes: PERRL, conjunctivae normal, anicteric sclerae ENMT: external ear and nose normal, oropharynx normal Neck: trachea midline, no thyromegaly Respiratory: normal respiratory effort, lungs clear to auscultation Cardiovascular: RRR, no murmur, no edema Heart Sounds: normal S1 and normal S2 Vessels: no JVD Extremities: normal capillary refill; no edema Gastrointestinal (Abdomen): normal bowel sounds, soft, nontender, no hepatosplenomegaly Musculoskeletal: no cyanosis or clubbing, extremities motor strength 5/5 Skin: Bilateral femoral dressings without significant edema or evidence of bleeding. Neurologic: PERRL, EOMI, accommodation nl, no face palsy, no dysarthria Psychiatric: A+Ox3, euthymic affect Results & Data Results & Data ([facility]) Vital Signs (Past 12 Hours) Vital Signs Temp Pulse Pulse Resp BP BP Pulse Ox 12/02/20 12:00 81 12/02/20 11:21 99.0 F 12/02/20 11:00 81 17 98 12/02/20 10:00 80 16 94 12/02/20 09:00 81 18 94 12/02/20 08:00 99.0 F 78 78 27 H 118/63 95 12/02/20 03:40 73 15 94 12/02/20 03:30 74 17 94 12/02/20 03:20 72 92/53 L 94 12/02/20 03:10 78 14 95 12/02/20 03:00 74 18 94 12/02/20 02:50 76 15 89 L 12/02/20 02:40 75 18 92 12/02/20 02:30 73 14 93 12/02/20 02:20 76 13 100/47 L 94 12/02/20 02:10 76 15 94 12/02/20 02:00 73 22 93 12/02/20 01:50 73 16 91 12/02/20 01:40 82 20 95 12/02/20 01:30 76 13 90 Coding Level of Care Code 94316 Subseq Hosp Care Lvl 1 Diagnoses AAA (abdominal aortic aneurysm) without rupture I71.4 Hyponatremia E87.1 CAD (coronary artery disease) I25.10 HTN (hypertension) I10 Dyslipidemia E78.5 Anxiety F41.9 GERD (gastroesophageal reflux disease) K21.9 COPD (chronic obstructive pulmonary disease) J44.9
--- NOTE | 2020-12-02 13:47 | Surgery Progress Note ---
Date of Service December 02, 2020 Assessment & Plan (1) AAA (abdominal aortic aneurysm) without rupture: Plan: Pt POD #1 after PEVAR with L groin cutdown, doing well post op. Pt discussed with Dr Panda, recommends d/c home today. Will follow up in 2 weeks for staple removal. Admission and Anticipated Discharge Date Admission Date: December 01, 2020 Subjective 75 yo f with AAA, now POD #1 after PEVAR with L groin cutdown, seen in f/u today. Pt admits pain in groin wounds, but denies any other complaints. Review of Systems Review of Systems: reviewed and negative aside from HPI Physical Exam Physical Exam: Constitutional: In general patient is a healthy-appearing well- nourished well-developed elderly female no distress. She is alert and oriented without any focal deficits. Her heart is regular, her lungs are clear but demonstrate significantly decreased breath sounds. Her abdomen is soft and nontender with normoactive bowel sounds in all 4 quadrants. BL groins are soft with mild local edema/ecchymosis/tenderness. R groin puncture without bleeding noted. L groin incision dressing in place with mild shadowing. Her radial pulses are +3. Her femoral pulses are +2. Her lower extremity distal pulses are +2. She has brisk capillary refill and no sign of distal ischemia Results & Data ([facility]) Vital Signs (Past 12 Hours) Vital Signs Temp Pulse Pulse Resp BP BP Pulse Ox 12/02/20 12:00 81 12/02/20 11:21 37.2 C 12/02/20 11:00 81 17 98 12/02/20 10:00 80 16 94 12/02/20 09:00 81 18 94 12/02/20 08:00 37.2 C 78 78 27 H 118/63 95 12/02/20 03:40 73 15 94 12/02/20 03:30 74 17 94 12/02/20 03:20 72 92/53 L 94 12/02/20 03:10 78 14 95 12/02/20 03:00 74 18 94 12/02/20 02:50 76 15 89 L 12/02/20 02:40 75 18 92 12/02/20 02:30 73 14 93 12/02/20 02:20 76 13 100/47 L 94 12/02/20 02:10 76 15 94 12/02/20 02:00 73 22 93 12/02/20 01:50 73 16 91
--- NOTE | 2020-12-02 13:48 | Discharge Summary ---
Date of Service December 02, 2020 Admission HPI Per Admitting Provider Mrs. Pal is an elderly female who presents to vascular surgery clinic today for a follow-up visit after undergoing a CTA of the abdomen and pelvis. Patient is seen by our vascular service annually with an aortoiliac ultrasound to evaluate her infrarenal AAA. She was to be seen here again this fall, however, her family physician ordered a renal ultrasound which demonstrated a 5.4 cm infrarenal abdominal aortic aneurysm. Her last ultrasound performed in this office in fall 2019 had demonstrated her aneurysm to be about 4.8 cm. Patient was advised to undergo a CTA and return to our office for further recom mendations due to the size demonstrated on the renal ultrasound. Patient does admit dyspnea on exertion when she goes upstairs or is active. She attributes this to her COPD. She does have a history of coronary stenting many years ago and does not continue to follow with her visual display associate for many years. Her last stress test was performed an unknown number of years ago. Patient denies any complaints at this time clinic headache, fever, chills, chest pain, shortness of breath, abdominal pain, nausea, vomiting, claudication, nonhealing wounds or ulcers, other complaints. Admission Exam Per Admitting Provider In general patient is a healthy-appearing well-nourished well-developed elderly female no distress. She is alert and oriented without any focal deficits. Her heart is regular, her lungs are clear but demonstrate significantly decreased breath sounds. Her abdomen is soft and nontender with normoactive bowel sounds in all 4 quadrants. Her pulsatile mass is appreciable on deep palpation. Her radial pulses are +3. Her femoral pulses are +2. Her lower extremity distal pulses are +2. She has brisk capillary refill and no sign of distal ischemia Principal Diagnosis 1. s/p PEVAR with L groin cutdown 2. AAA Discharge Exam Constitutional: In general patient is a healthy-appearing well-nourished well- developed elderly female no distress. She is alert and oriented without any focal deficits. Her heart is regular, her lungs are clear but demonstrate significantly decreased breath sounds. Her abdomen is soft and nontender with normoactive bowel sounds in all 4 quadrants. BL groins are soft with mild local edema/ecchymosis/tenderness. R groin puncture without bleeding noted. L groin incision dressing in place with mild shadowing. Her radial pulses are +3. Her femoral pulses are +2. Her lower extremity distal pulses are +2. She has brisk capillary refill and no sign of distal ischemia Discharge Data Allergies Allergy/AdvReac Type Severity Reaction Status Date / Time azithromycin Allergy Hives Verified 12/01/20 06:55 hydrochlorothiazide AdvReac Unknown Verified 12/01/20 06:55 Consultations 12/01/20 07:38 Consult Oxygen Plant Operator Routine Procedures Performed Operation Date: 12/01/20 08:00 Actual Procedures p Percutaneous Endovascular Aneurysm Repair, Open Exposure of Left Groin, Ultrasound Localization of Bilateral Femoral Arteries, Mechanical Closure of Right Femoral Artery(Bilateral) - Angelo Panda MD Ordered Studies 12/01/20 07:12 US EV guide vascular access Routine Hospital Course (1) AAA (abdominal aortic aneurysm) without rupture: Pt POD #1 after PEVAR with L groin cutdown, doing well post op. Pt discussed with Dr Panda, recommends d/c home today. Will follow up in 2 weeks for staple removal. Total Time Total Time Spent Total Time Spent (In Minutes): 0 Discharge Plan Discharge Items Patient Disposition: Home - Self-Care Reason For Visit: Abdominal Aortic Aneurysm Discharge Diagnosis: 1. post Endovascular Abdominal Aortic Aneurysm Repair with Left groin cutdown 2. Abdominal aortic aneurysm Activity: Per Instructions section Non-emergency contact: Primary Care Provider and Surgeon Call non-emergency contact if: you have any medication questions, your pain is not controlled, your pain is concerning for you, you have a fever and your wound has increased drainage Follow-up/Referrals: Mitchell Youngblood DO [Primary Care Provider] - (Follow up with PCP within 1-2 weeks.) Angelo Panda MD [Physician] - (Follow up with Dr Panda or Brittanie Shukla PA-C in 2 weeks for staple removal) Diet: Heart Healthy Addtl Attending Provider Instructions: SPECIAL CARE INSTRUCTIONS: Medications: * Continue to take your medications as directed. Incision/Puncture Site Care: * You will have an incision or puncture in each of your groins. Liquid glue will be used to seal your incisions/puncture site. This will lift off as the incisions/puncture sites heal. * If Liquid glue is not used, there will be small dressings covering your incisions. After you get home, you may remove the dressings and shower - allowing the warm soapy water to run over it. * Be sure to dry the sites well and keep them dry. * DO NOT SOAK IN A TUB/POOL/etc. UNTIL ALL SURGICAL SITES ARE HEALED. DO NOT REMOVE THE GLUE UNTIL THE INCISIONS HEAL. 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 * You may walk and go up and down steps. * Avoid excessive bending or movement at the level of the incisions or punctures. Risks and Possible Complications: * Infection/Drainage/Bleeding - Drainage or bleeding from the incisions/puncture site should be minimal. If you have excessive bleeding or drainage, call our office ([phone]) right away. * Pain/Numbness - You may experience some mild pain or soreness at your incision sites. You may also have some numbness around the incisions or into the insides of your thighs. Bruising is normal and should resolve within 2 weeks. * Changes in Appetite or Bowel Habits - Mostly related to anesthesia and pain medication, some patients have reported decreased appetite and/or problems with constipation. These symptoms usually improve over a few weeks. Remembering to take an [id number] stool softener, as directed, will help you to avoid constipation. Call our office and seek emergent treatment if you develop: * Fever or chills * Have a temperature greater than 101 degrees F * Any redness or purulent drainage from your incisions or punctures * Severe abdominal, chest or back pain SKIN IRRITATION: * You may experience some redness and/or swelling in the area where radiation was administered. If any skin irritation occurs, please contact your family physician. You will be receiving a call from the Vascular Surgery Nurse after you are discharged. FOLLOW UP VISIT: It is important for you to keep your follow up appointments with your medical provider. Keep any scheduled doctor appointments. Pending Studies at Discharge: No Stand-Alone Forms: [employer] [facility], Smoking Cessation Medications and DC Order Prescriptions: New oxycodone-acetaminophen [Percocet] 5-325 mg Tablet 1 - 2 tab PO Q4H PRN (Reason: pain) Qty: 30 RF: 0 Continued lorazepam 0.5 mg tablet 0.5 mg PO Q6H PRN (Reason: anxiety) Qty: 120 RF: 0 Symbicort 160-4.5 mcg/actuation HFA aerosol inhaler 2 puff INH BID Qty: 6 RF: 1 albuterol sulfate 90 mcg/actuation HFA aerosol inhaler 2 puff inhalation Q4H PRN (Reason: shortness of breath or wheezing) Qty: 18 RF: 3 buspirone 5 mg tablet 5 mg PO BID Qty: 60 RF: 2 nitroglycerin 0.4 mg tablet, sublingual 0.4 mg SL Q5M PRN (Reason: chest pain) Qty: 25 RF: 0 hydrocortisone [Anusol-HC] 2.5 % cream with perineal applicator 1 applic UT BID PRN (Reason: hemorrhoids) Qty: 30 RF: 1 hydrocortisone acetate 1 % cream 1 % UT BID Qty: 1 RF: 0 atorvastatin 10 mg tablet 10 mg PO QPM RF: 0 aspirin 325 mg tablet 325 mg PO QAM RF: 0 metoprolol succinate 50 mg tablet extended release 24 hr 50 mg PO QPM RF: 0 lidocaine HCl 2 % jelly 1 applic topical BID PRN (Reason: Pain) RF: 0 amlodipine [Norvasc] 5 mg tablet 5 mg PO QAM RF: 0 hydrocortisone acetate [Anusol-HC] 25 mg suppository 25 mg UT BID PRN (Reason: ud) RF: 0 phenazopyridine [Pyridium] 100 mg tablet 100 mg PO TID PRN (Reason: Pain) RF: 0 omeprazole 20 mg capsule,delayed release(DR/EC) 20 mg PO QAM RF: 0 montelukast [Singulair] 10 mg tablet 10 mg PO QPM RF: 0 olmesartan [Benicar] 40 mg tablet 40 mg PO QAM RF: 0 Discharge Orders: Discharge Order (Routine); Ordered 12/02/20 Ordered By: Brittanie Shukla Admission Data Admit Date/Time: 12/01/20 07:38 Attending Provider: Angelo Panda Admit Provider: Angelo Panda Primary Care Provider: Mitchell Youngblood Other Providers: Aguilar Orozco ; Yehuda Leonard ; Joshua Jenkins ; Johnnie Leo ; Carlos Jackson ; Felice Marks ; Mariella Cazares ; Zaheer Molina
== END 2020-12-02 15:26 | disposition home or self-care (01) | DRG 269 ==
LOC: ASU 06:26 → 1E 07:38